=== PATIENT | female | born 1950 | race Caucasian/White ===

== ENCOUNTER → 2017-11-30 | Outpatient (CLI) | payer OTHER | END | disposition home or self-care (01) | LOC: CDC 09:31 | DX: Z01.810 Encounter for preprocedural cardiovascular examination (principal); K40.90 Unilateral inguinal hernia, without obstruction or gangrene, not specified as recurrent; R94.31 Abnormal electrocardiogram [ECG] [EKG] | CPT/HCPCS: 93000 ==

== ENCOUNTER 2017-12-08 07:15 | Day surgery (SDC) | payer OTHER ==
[~2017-12-08] VITALS: Ht 160 cm; Wt 71.8 kg
[~2017-12-08 07:15] MED LIST: CALCIUM 600 +1 EAC9 PO; LO-DOSE ASPIRIN81 M1 PO; LOPRESSOR25 MG PO; MAGNESIUM200 MG PO; NEXIUM40 MG PO; PROBIOTIC1 EAC5 PO; STOOL SOFTENER100 M1 PO; VITAMIN B-12250 MCG PO; ZESTRIL20 MG PO; ZOCOR40 MG PO
[2017-12-08 07:58] VITALS: BP 172/84
[2017-12-08] MEDS ORDERED: NORCO 5/3251 TABLET PO (10:06)
[2017-12-08 11:27] VITALS: BP 185/82
[2017-12-08 12:57] VITALS: BP 150/69
[2017-12-08 13:34] VITALS: BP 158/74
== END 2017-12-08 13:30 | disposition home or self-care (01) ==
LOC: SDC 07:15
PROC: 0YU50JZ Supplement Right Inguinal Region with Synthetic Substitute, Open Approach (ICD-10-PCS; principal; 2017-12-08)
DX: K40.90 Unilateral inguinal hernia, without obstruction or gangrene, not specified as recurrent (principal); I10 Essential (primary) hypertension; K21.9 Gastro-esophageal reflux disease without esophagitis; R94.31 Abnormal electrocardiogram [ECG] [EKG]; Z79.82 Long term (current) use of aspirin
CPT/HCPCS: C1781; J0131; J0690; J1100; J1170; J2250; J2405; J2710; J7643; Q0175